=== PATIENT | male | born 1970 | race African-American/Black ===

== ENCOUNTER 2022-08-24 19:31 | Emergency (ER) | payer SELFPAY ==
[~2022-08-24] VITALS: Ht 182.9 cm; Wt 69.0 kg
[2022-08-24 19:49] VITALS: BP 115/64
[2022-08-24] MEDS ORDERED: KETOROLAC 30MG/ML VIAL IM ONE (23:00)
[2022-08-25] MEDS ORDERED: CYCL10TA21 MT (00:45)
[2022-08-25] MEDS ORDERED: NAPR-681 MT (00:45)
[2022-08-25] MEDS ORDERED: CYCLOBENZAPRINE 10MG TABLET PO ONE (00:45)
[2022-08-25] MEDS ORDERED: KETOROLAC 30MG/ML VIAL IM NR (01:15)
== END 2022-08-25 01:27 | disposition home or self-care (01) ==
LOC: ER 19:31
DX: M79.89 Other specified soft tissue disorders (principal); M77.8 Other enthesopathies, not elsewhere classified; G89.29 Other chronic pain
CPT/HCPCS: 73030; 73600; 96372; 99284; J1885